=== PATIENT | female | born 1980 | race Two or more races ===

== ENCOUNTER 2022-03-01 00:26 | Outpatient (CLI) | payer OTHER | END 2022-03-01 09:02 | disposition home or self-care (01) | LOC: OBS/DEL 00:26 | PROVIDERS: ATTEND Obstetrics & Gynecology Maternal & Fetal Medicine | DX: O26.892 Other specified pregnancy related conditions, second trimester (principal); Z3A.26 26 weeks gestation of pregnancy; R10.2 Pelvic and perineal pain ==

== ENCOUNTER 2022-04-20 13:57 | Outpatient (CLI) | payer OTHER | END 2022-04-20 14:53 | disposition home or self-care (01) | LOC: NST 13:57 | PROVIDERS: ATTEND Obstetrics & Gynecology Maternal & Fetal Medicine | DX: Z34.83 Encounter for supervision of other normal pregnancy, third trimester (principal) ==

== ENCOUNTER 2022-05-11 12:22 | Inpatient (IN) | payer OTHER ==
[~2022-05-11] VITALS: Ht 160 cm; Wt 95.7 kg
[2022-05-11] MEDS ORDERED: PRENATAL TABLE1 EAC3 PO (14:03)
[2022-05-11] MEDS ORDERED: CHILDREN'S ASPI81 MG PO (14:03)
== END 2022-05-14 12:38 | disposition home or self-care (01) | DRG 805 ==
LOC: OBS/DEL 12:22 → LDR 17:12 → OB/GYN 05-12 20:00
PROVIDERS: ADMIT Obstetrics & Gynecology Gynecology; ATTEND Obstetrics & Gynecology Gynecology
PROC: 4A1HXCZ Monitoring of Products of Conception, Cardiac Rate, External Approach (ICD-10-PCS; 2022-05-11)
PROC: 10E0XZZ Delivery of Products of Conception, External Approach (ICD-10-PCS; principal; 2022-05-12)
PROC: 0UQMXZZ Repair Vulva, External Approach (ICD-10-PCS; 2022-05-12)
PROC: 3E0P7VZ Introduction of Hormone into Female Reproductive, Via Natural or Artificial Opening (ICD-10-PCS; 2022-05-12)
PROC: 3E033VJ Introduction of Other Hormone into Peripheral Vein, Percutaneous Approach (ICD-10-PCS; 2022-05-12)
DX: O71.82 Other specified trauma to perineum and vulva (principal); O60.14X0 Preterm labor third trimester with preterm delivery third trimester, not applicable or unspecified; Z37.0 Single live birth; Z3A.36 36 weeks gestation of pregnancy; Z20.822 Contact with and (suspected) exposure to COVID-19